=== PATIENT | male | born 1965 | race Two or more races ===

== ENCOUNTER 2021-11-13 13:24 | Inpatient (IN) | payer OTHER ==
[2021-11-13] VITALS (15 sets, daily range): BP systolic 95–128; BP diastolic 46–70
[~2021-11-13] VITALS: Ht 170.2 cm; Wt 69.4 kg
[~2021-11-13 13:24] MED LIST: HEPARIN 1000 UNITS/ML 10ML ONE; NICARDIPINE 100MCG/ML 10ML VIAL (CATH LAB) IV ONE; NITROGLYCERIN 50MCG/ML 10ML VIAL (CATH LAB) IV ONE
[2021-11-13] MEDS ORDERED: ASPIRIN 81MG TABLET PO ONE (13:45)
[2021-11-13] MEDS ORDERED: SODIUM CHLORIDE 0.9% 1,000 ML IV ONE (13:45)
[2021-11-13] MEDS ORDERED: LIDOCAINE HCL 1% 20ML VIAL (Pyxis) INJ ONE (13:48)
[2021-11-13] MEDS ORDERED: IOHEXOL-300 100 ML BOTTLE ONE (13:49)
[2021-11-13] MEDS ORDERED: IODIXANOL 320MG/ML 100 ML BOTTLE IV ONE ×3 (13:49→15:03)
[2021-11-13] MEDS ORDERED: ASPIRIN 81MG EC TABLET PO ONE (13:50)
[2021-11-13] MEDS ORDERED: VERAPAMIL HCL 2.5 MG/1 ML 2ML VIAL IV ONE (13:54)
[2021-11-13] MEDS ORDERED: FENTANYL CITRATE/PF 50MCG/ML 2ML VIAL ONE (13:59)
[2021-11-13] MEDS ORDERED: MIDAZOLAM HCL 2 MG/2 ML VIAL ONE (13:59)
[2021-11-13 14:01] LABS: CHLORIDE 114 mEq/L (98-107)
[2021-11-13 14:12] LABS: PARTIAL THROMBOPLASTIN TIME 25.9 sec (23.4-31.0); PROTHROMBIN TIME 10.8 sec (9.6-11.0)
[2021-11-13] MEDS ORDERED: ATROPINE SULFATE 1MG/10ML SYR ONE (14:21)
[2021-11-13] MEDS ORDERED: CLOPIDOGREL 75MG TABLET ONE (15:43)
[2021-11-13] MEDS ORDERED: ATROPINE SULFATE 1MG/10ML SYR IV PRN (16:00)
[2021-11-13] MEDS: SODIUM CHLORIDE 0.45% 1,000 ML IV SCH (17:13)
[2021-11-13] MEDS ORDERED: ONDANSETRON HCL 4MG/2ML INJ IV PRN (17:15)
[2021-11-13] MEDS ORDERED: TRAMADOL 50MG TABLET PO PRN (17:15)
[2021-11-13] MEDS ORDERED: DOCUSATE SODIUM 100MG CAPSULE PO PRN (17:15)
[2021-11-13] MEDS ORDERED: DEXTROSE 50% WATER 50ML SYRINGE IV PRN (17:15)
[2021-11-13] MEDS: BLOOD SUGAR DIAGNOSTIC STRIP TEST SCH ×2 (17:40→21:58)
[2021-11-13 17:44] LABS: HEMATOCRIT. 40.8 % (42.0-52.0); HEMOGLOBIN. 13.5 g/dL (14.0-18.0); MEAN CORPUSCULAR HEMOGLOBIN 28.8 pg (28.0-32.0); MEAN CORPUSCULAR VOLUME 86.9 fL (80.0-94.0); MEAN PLATELET VOLUME 8.7 fl (7.4-10.4); PLATELET 253 x1000/uL (130-400); RED BLOOD CELL COUNT 4.69 mill/uL (4.7-6.1); RED CELL DISTRIBUTION WIDTH 13.7 % (11.6-14.6)
[2021-11-13] MEDS: INSULIN LISPRO 100 UNITS/ML SUBCUT SCH ×2 (18:12→22:07)
[2021-11-13] MEDS ORDERED: GLYB5TAB7 PO (19:24)
[2021-11-13] MEDS ORDERED: METF-416 PO (19:26)
[2021-11-13] MEDS ORDERED: CARV3.1242 PO (19:27)
[2021-11-13 21:53] LABS: PLATELET ESTIMATE NORMAL
[2021-11-13] MEDS: ATORVASTATIN CALCIUM 40MG TABLET PO SCH (21:59)
[2021-11-14] VITALS (24 sets, daily range): BP systolic 90–152; BP diastolic 48–99
[2021-11-14] MEDS: SODIUM CHLORIDE 0.45% 1,000 ML IV SCH ×2 (00:29→08:00)
[2021-11-14 06:34] LABS: CHLORIDE 113 mEq/L (98-107)
[2021-11-14 06:45] LABS: LDL CHOLESTEROL 73 mg/dL (5-100)
[2021-11-14 06:47] LABS: HDL CHOLESTEROL 35 mg/dL (40-59)
[2021-11-14 06:56] LABS: BASOPHILS % 0.6 % (0.0-2.0); EOSINOPHILS % 0.5 % (0.0-5.0); HEMATOCRIT. 37.6 % (42.0-52.0); HEMOGLOBIN. 12.9 g/dL (14.0-18.0); LYMPHOCYTES % 18.3 % (20.0-50.0); MEAN CORPUSCULAR HEMOGLOBIN 30.1 pg (28.0-32.0); MEAN CORPUSCULAR VOLUME 87.5 fL (80.0-94.0); MEAN PLATELET VOLUME 8.9 fl (7.4-10.4); MONOCYTES % 11.7 % (2.0-8.0); NEUTROPHILS % 68.9 % (40.0-76.0); PLATELET 242 x1000/uL (130-400); RED CELL DISTRIBUTION WIDTH 13.7 % (11.6-14.6)
[2021-11-14] MEDS: INSULIN LISPRO 100 UNITS/ML SUBCUT SCH ×4 (07:57→21:18)
[2021-11-14] MEDS: BLOOD SUGAR DIAGNOSTIC STRIP TEST SCH ×4 (07:57→21:17)
[2021-11-14] MEDS: ASPIRIN 81MG TABLET PO SCH (08:06)
[2021-11-14] MEDS: CLOPIDOGREL 75MG TABLET PO SCH (08:06)
[2021-11-14] MEDS: ACETAMINOPHEN 325MG TABLET PO PRN ×2 (08:47→18:15)
[2021-11-14] MEDS ORDERED: INSULIN GLARGINE UD 100 UNITS/ML SYR SUBCUT SCH (11:00)
[2021-11-14] MEDS ORDERED: GUAIFENESIN-DM 200MG-20MG/10ML UDC PO PRN (11:00)
[2021-11-14] MEDS: IPRATROPIUM/ALBUTEROL 0.5-3(2.5)MG/3ML NEB HHN SCH ×3 (12:53→20:22)
[2021-11-14] MEDS: ATORVASTATIN CALCIUM 40MG TABLET PO SCH (21:17)
[2021-11-15] VITALS (20 sets, daily range): BP systolic 92–130; BP diastolic 43–98
[2021-11-15] MEDS: IPRATROPIUM/ALBUTEROL 0.5-3(2.5)MG/3ML NEB HHN SCH ×3 (01:50→12:46)
[2021-11-15 06:27] LABS: BASOPHILS % 0.3 % (0.0-2.0); EOSINOPHILS % 0.5 % (0.0-5.0); HEMATOCRIT. 38.8 % (42.0-52.0); HEMOGLOBIN. 12.9 g/dL (14.0-18.0); LYMPHOCYTES % 10.7 % (20.0-50.0); MEAN CORPUSCULAR HEMOGLOBIN 29.3 pg (28.0-32.0); MEAN CORPUSCULAR VOLUME 87.8 fL (80.0-94.0); MEAN PLATELET VOLUME 8.7 fl (7.4-10.4); MONOCYTES % 10.5 % (2.0-8.0); PLATELET 255 x1000/uL (130-400); RED BLOOD CELL COUNT 4.42 mill/uL (4.7-6.1)
[2021-11-15 06:30] LABS: CHLORIDE 109 mEq/L (98-107)
[2021-11-15] MEDS: ACETAMINOPHEN 325MG TABLET PO PRN (07:29)
[2021-11-15] MEDS: BLOOD SUGAR DIAGNOSTIC STRIP TEST SCH (07:50)
[2021-11-15] MEDS: CLOPIDOGREL 75MG TABLET PO SCH (09:12)
[2021-11-15] MEDS: ASPIRIN 81MG TABLET PO SCH (09:12)
[2021-11-15] MEDS: INSULIN LISPRO 100 UNITS/ML SUBCUT SCH (09:13)
[2021-11-15] MEDS ORDERED: INSULIN GLARGINE UD 100 UNITS/ML SYR SUBCUT SCH (10:00)
[2021-11-15] MEDS ORDERED: TUSSL PO (12:14)
[2021-11-15] MEDS ORDERED: LIP40 PO (12:14)
[2021-11-15] MEDS ORDERED: EMPA25TA MT (12:14)
[2021-11-15] MEDS ORDERED: CLOP75TA15 PO (12:14)
== END 2021-11-15 13:40 | disposition home or self-care (01) | DRG 247 ==
LOC: ER 13:44 → CVICU 13:47 → EDBEDREQ 13:54
PROVIDERS: ADMIT Internal Medicine; ATTEND Internal Medicine
PROC: 027036Z Dilation of Coronary Artery, One Artery with Three Drug-eluting Intraluminal Devices, Percutaneous Approach (ICD-10-PCS; principal; 2021-11-13)
PROC: B211YZZ Fluoroscopy of Multiple Coronary Arteries using Other Contrast (ICD-10-PCS; 2021-11-13)
PROC: 4A023N7 Measurement of Cardiac Sampling and Pressure, Left Heart, Percutaneous Approach (ICD-10-PCS; 2021-11-13)
PROC: B34HZZZ Ultrasonography of Right Upper Extremity Arteries (ICD-10-PCS; 2021-11-13)
DX: I21.19 ST elevation (STEMI) myocardial infarction involving other coronary artery of inferior wall (principal); I25.10 Atherosclerotic heart disease of native coronary artery without angina pectoris; E78.5 Hyperlipidemia, unspecified; E11.9 Type 2 diabetes mellitus without complications; Z20.822 Contact with and (suspected) exposure to COVID-19; F17.210 Nicotine dependence, cigarettes, uncomplicated; E78.00 Pure hypercholesterolemia, unspecified; I10 Essential (primary) hypertension; R00.1 Bradycardia, unspecified; I45.10 Unspecified right bundle-branch block
CPT/HCPCS: 36415; 71045; 80048; 80053; 80061; 82962; 83036; 83735; 83880; 84443; 84484; 85025; 85347; 87426; 92941; 93005; 93458; 94640; 99291; C1769; C1874; C1887; C1893; J0461; J1644; J1815; J2250; J3010; J3490; J7030; Q9967